=== PATIENT | female | born 1950 | race Caucasian/White ===

== ENCOUNTER → 2020-06-30 | Outpatient (CLI) | payer MEDICARE, OTHER ==
[~2020-06-30] MED LIST: ARIXTRA SQ; CARBATROL PO; CARBATROL200 MG PO; CELEBREX 200 M200 M1 PO; CYMBALTA60 MG PO; ENDOCET 10-3251 EACH PO; ENDOCET 10-6501 EACH PO; LYRICA 75 MG CA75 MG PO; NEXIUM40 MG PO; NORFLEX100 MG PO; OXYCONTIN CR 1010 M1 PO; OXYIR5 MG PO; PLAVIX 75 MG TA75 MG PO; PREMARIN0.625 MG PO; ZESTRIL20 MG PO
== END ==
LOC: M.MRI 11:30
PROVIDERS: ATTEND Orthopaedic Surgery
DX: M51.17 Intervertebral disc disorders with radiculopathy, lumbosacral region (principal); M48.07 Spinal stenosis, lumbosacral region; M47.26 Other spondylosis with radiculopathy, lumbar region; M25.78 Osteophyte, vertebrae

== ENCOUNTER → 2020-08-23 | Outpatient (CLI) | payer MEDICARE, OTHER | LOC: M.MRI 11:00 | PROVIDERS: ATTEND Orthopaedic Surgery | DX: M51.15 Intervertebral disc disorders with radiculopathy, thoracolumbar region (principal); M51.17 Intervertebral disc disorders with radiculopathy, lumbosacral region; M48.07 Spinal stenosis, lumbosacral region; M25.78 Osteophyte, vertebrae; M47.26 Other spondylosis with radiculopathy, lumbar region ==